=== PATIENT | male | born 1930 | race American Indian/Alaskan Native ===

== ENCOUNTER 2018-04-30 22:49 | Emergency (ER) | payer MEDICARE, OTHER ==
[2018-04-30 23:06] VITALS: PULSE 98; RESP 20; TEMP 97.6
--- NOTE | 2018-04-30 23:29 | C.PDOC ---
History Of Present Illness 88 yo male brought in by family for evaluation of left elbow and left knee pain onset several days ago. Family reports no injury. Patient only provides limited history secondary to dementia. Family notes the patient has had difficulty being mobile secondary to pain. They also report patient with decreased appetite for the past few days. He was [place] [facility] [place]-rays, which family was told were negative. Since then patient continues to have pain, and they noticed this afternoon increased warmth to both the knee and elbow. Tonight the patient developed swelling to the two areas, and family brought patient in for re-evaluation. Otherwise they deny any fever, vomiting, change in bowel/bladder habits, or other associated symptoms. Time Seen by Provider: 04/30/18 23:02 Chief Complaint (Nursing): Upper Extremity Problem/Injury History Per: Family History/Exam Limitations: no limitations Onset/Duration Of Symptoms: Days Current Symptoms Are (Timing): Still Present Exacerbating Factor(s): Movement Past Medical History Reviewed: Historical Data, Nursing Documentation, Vital Signs Vital Signs: Last Vital Signs Temp 97.6 F 04/30/18 22:58 Pulse 98 H 04/30/18 22:58 Resp 20 04/30/18 22:58 BP 126/86 04/30/18 22:58 Pulse Ox 96 04/30/18 22:58 - Medical History PMH: Dementia, Diabetes, HTN, Hypercholesterolemia Family History: States: No Known Family Hx - Social History Hx Alcohol Use: No Hx Substance Use: No Review Of Systems Review Of Systems: ROS cannot be obtained secondary to pt's inabilty to answer questions. Physical Exam - Physical Exam Appears: Non-toxic, No Acute Distress, Other (Appears to have difficulty mobilizing, seems somewhat stiff) Skin: Normal Color, Warm, Dry Head: Atraumatic, Normacephalic Eye(s): bilateral: Normal Inspection Neck: Normal ROM, Supple Chest: Symmetrical Cardiovascular: Rhythm Regular Respiratory: Normal Breath Sounds, No Accessory Muscle Use Gastrointestinal/Abdominal: Soft, No Tenderness, No Distention, No Guarding Extremity: Left: Other (Swollen from left distal humerus down to hand, with increased warmth and tenderness diffusely; + Swelling over the left patellar tendon, also with increased warmth and tenderness), Bilateral: No Pedal Edema, Normal Color And Temperature Pulses: Left Dorsalis Pedis: Normal, Right Dorsalis Pedis: Normal Neurological/Psych: Normal Speech, Other (Calm, cooperative) ED Course And Treatment - Laboratory Results Result Diagrams: 04/30/18 23:47 04/30/18 23:47 Lab Interpretation: Abnormal (BUN 56, Cr 1.9, Uric acid 9.8, glucose 210) O2 Sat by Pulse Oximetry: 96 (RA) Pulse Ox Interpretation: Normal Progress Note: Treated with Decadron and Colchicine in ED Reevaluation Time: 00:51 Reassessment Condition: Unchanged Medical Decision Making Medical Decision Making: Initial Impression: Persistent left knee and elbow pain and swelling Initial Plan: --CMP --Lactic acid --Uric acid --CBC --D dimer --Lyme disease EIA w/ reflex to WB --UA --Blood cultures sent Disposition Counseled Patient/Family Regarding: Studies Performed, Diagnosis, Need For Followup, Rx Given - Disposition Referrals: [facility] [Outside] Disposition: HOME/ ROUTINE Disposition Time: 00:51 Condition: FAIR Prescriptions: Colchicine [Colcrys] 0.6 mg PO TID #30 tablet Instructions: Low Purine Diet, Gout Forms: [employer] (Mauritian) - Clinical Impression Clinical Impression: Acute gout - Scribe Statement The provider has reviewed the documentation as recorded by the Scribe (Denise Bernstein) Provider Attestation: All medical record entries made by the Scribe were at my direction and personally dictated by me. I have reviewed the chart and agree that the record accurately reflects my personal performance of the history, physical exam, medical decision making, and the department course for this patient. I have also personally directed, reviewed, and agree with the discharge instructions and disposition.
[2018-04-30 23:50] LABS: BASO # 0.1 K/uL (0.0-0.2); BASO % 0.9 % (0.0-2.0); EOS # 0.1 K/uL (0.0-0.7); EOS % 1.3 % (0.0-4.0); HEMOGLOBIN 12.7 g/dL (12.0-18.0); LYMPH # 1.2 K/uL (1.0-4.3); LYMPH % 17.3 % (20.0-40.0); MEAN CELL VOLUME 88.4 fL (80.0-94.0); MEAN CORPUSCULAR HEMOGLOBIN 29.2 pg (27.0-31.0); MEAN PLATELET VOLUME 8.7 fL (7.2-11.7); MONO # 0.7 K/uL (0.0-0.8); MONO % 9.8 % (0.0-10.0); NEUT # 4.8 K/uL (1.8-7.0); NEUT % 70.7 % (50.0-75.0); RBC 4.35 Mil/uL (4.40-5.90); WHITE BLOOD COUNT 6.8 K/uL (4.8-10.8)
[2018-05-01 00:03] LABS: CALCIUM 9.9 mg/dl (8.6-10.4); URIC ACID 9.8 mg/dL (3.5-8.5)
[2018-05-01 00:04] LABS: ALB/GLOB RATIO 0.9 (1.0-2.1); ALBUMIN 4.2 g/dL (3.5-5.0)
[2018-05-01] MEDS ORDERED: Dexamethasone 4 mg/1 ml IVP STA (00:35)
[2018-05-01] MEDS ORDERED: Dexamethasone 4 mg/1 ml ONE (01:08)
[2018-05-01 02:40] VITALS: BP 125/83; O2SAT 100
== END 2018-05-01 03:16 | disposition home or self-care (01) ==
LOC: C.ER 22:49
DX: M10.9 Gout, unspecified (principal)
CPT/HCPCS: 80053; 83605; 84550; 85025; 85378; 86618; 87040; 96374; 99285; J1100